=== PATIENT | female | born 1995 | race Caucasian/White ===

== ENCOUNTER 2016-06-10 18:04 | Emergency (ER) | payer MEDICAID, OTHER ==
[2016-06-10] MEDS ORDERED: NS 500 ML IV ONE (18:27)
--- NOTE | 2016-06-10 18:28 | EDPHY ---
H & P Stated Complaint: Sore throat, flu like symptoms Time Seen by Provider: 06/10/16 18:28 - Personal History LMP (Females 10-55): Over 28 Days Ago Current Tetanus/Diphtheria Vaccine: Yes Current Tetanus Diphtheria and Acellular Pertussis (TDAP): Yes - Medical/Surgical History Hx Asthma: Yes Hx Chronic Respiratory Disease: No Hx Diabetes: No Hx Cardiac Disease: No Hx Renal Disease: No Hx Cirrhosis: No Hx Alcoholism: No Hx HIV/AIDS: No Hx Splenectomy or Spleen Trauma: No Other PMH: asthma, herpes simplex 1 - Social History Smoking Status: Never smoked Constitutional: Initial Vital Signs Temperature (C) 38.8 C H 06/10/16 18:09 Heart Rate 118 H 06/10/16 18:09 Respiratory Rate 12 06/10/16 18:09 Blood Pressure 102/74 06/10/16 18:09 O2 Sat (%) 100 06/10/16 18:09 O2 Delivery Mode Room Air Allergies/Adverse Reactions: penicillin G Allergy (Verified 02/02/16 21:53) peanuts Allergy (Uncoded 02/02/16 21:53) Home Medications: Medication Instructions Recorded LaMICtal 09/11/15 Medical Decision Making ED Course/Re-evaluation: CHIEF COMPLAINT: "really sore throat" HISTORY OF PRESENT ILLNESS: The patient is a 20 y/o female complaining of a sore throat for the last 6 days. She complains of associated swelling and painful swallowing. She went to urgent care yesterday and they prescribed her Keflex, but she feels unimproved so far. No vomiting, fever, abdominal pain, or diarrhea. She denies pertinent medical history. REVIEW OF SYSTEMS: A 10 point review of systems was performed and is negative with the exception of the elements mentioned in the history of present illness. PHYSICAL EXAM: HR, BP, O2 Sat, RR. Temp noted at 38.8C General Appearance: Alert, well hydrated, appropriate, and non-toxic appearing. Head: Atraumatic without scalp tenderness or obvious injury Eyes: Pupils equal, round, reactive to light and accommodation, EOMI, no trauma , no injection. Ears: Clear bilaterally, no perforation, normal landmarks Nose: Atraumatic, no rhinorrhea, clear. Throat: There is significant erythema with mild swelling and exudate on left tonsil, uvula is excoriated, mucus membranes moist. Neck: Supple, nontender, cervical and mandibular lymphadenopathy. Respiratory: No retractions, no distress, no wheezes, and no accessory muscle use. Lungs are clear to auscultation bilaterally. Cardiovascular: Tachycardic regular rate and rhythm, no murmurs, rubs, or gallops. Good capillary refill all extremities. Gastrointestinal: Abdomen is soft, nontender, non-distended, no masses, no rebound, no guarding, no peritoneal signs. Musculoskeletal: Normal active ROM of all extremities, atraumatic. Neurological: Alert, appropriate, and interactive. The patient has normal DTRs and non-focal cranial nerves, motor, sensory, and cerebellar exam. Skin: No rashes, good turgor, no nodules on palpation. Past medical history: Previous ED visits for sore throat Past surgical history: denies Family history: noncontributory Social history: [employer] student Prior medical records reviewed including ED visit 02/04/16 for sore throat. DIFFERENTIAL DIAGNOSIS: The differential diagnosis for the patient's sore throat included but was not limited to bacterial pharyngitis, viral pharyngitis , pneumonia, urinary tract infection, viral syndrome, meningitis, and sepsis. MEDICAL DECISION MAKING: This is a healthy 20 y/o female presenting with a 6-day history of significant pharyngeal erythema and pain. She is initially febrile and tachycardic. Her symptoms are consistent with bacterial pharyngitis and she was placed on Keflex less than 24 hours ago. I agree with this choice of antibiotics. 1gm IV Ceftriaxone, 30mg IV Toradol, 10mg IV Decadron, and 2L IV NS administered. I recommended continuing her course of Keflex at home and using Tylenol and ibuprofen as needed for fever and pain. She is comfortable with this plan. I've referred her to ENT if needed for follow up. - Data Points Medications Given: Discontinued Medications Sodium Chloride (Ns) 500 mls @ 0 mls/hr IV EDNOW ONE PRN Reason: Wide Open Stop: 06/10/16 18:28 Last Admin: 06/10/16 18:38 Dose: 1,000 mls Departure - Departure Disposition: Home, Routine, Self-Care Clinical Impression: Acute bacterial pharyngitis Condition: Good Instructions: Cephalexin (By mouth), Pharyngitis (ED), Strep Throat (ED) Additional Instructions: 1. Continue taking Keflex as prescribed. Be sure to complete the entire prescription. 2. Use Tylenol and ibuprofen as directed on the packing if needed for pain or fever. 3. Follow up with your primary care provider for symptoms not improved over the next 3-4 days. 4. If you are having recurrent throat infections, I recommend following up with Dr. Sabillon, ENT, for further evaluation. Referrals: [facility] [Other] - As per Instructions Constance Sabillon MD [Medical Doctor] - As per Instructions Report Scribed for: Fabian Alston Report Scribed by: Susanne Herring Date of Report: 06/10/16 Time of Report: 19:04
[2016-06-10] MEDS ORDERED: DEXAMETHASONE 10 MG/ML VIAL IVP ONE (19:09)
[2016-06-10] MEDS ORDERED: KETOROLAC 30 MG/1 ML SDV IVP ONE (19:09)
[2016-06-10] MEDS ORDERED: NS 1,000 ML IV ONE (20:06)
[2016-06-10 20:10] VITALS: BP 101/57; PULSE 110; RESP 16; TEMP 102.6; O2SAT 97
== END 2016-06-10 20:30 | disposition home or self-care (01) ==
DX: J02.8 Acute pharyngitis due to other specified organisms (principal); B96.89 Other specified bacterial agents as the cause of diseases classified elsewhere; J45.909 Unspecified asthma, uncomplicated
CPT/HCPCS: 96365; J0696; J1885

== ENCOUNTER 2016-06-12 16:37 | Inpatient (IN) | payer OTHER ==
--- NOTE | 2016-06-12 16:44 | EDPHY ---
H & P Stated Complaint: SOB, tingling to extremities, unable to swallow Time Seen by Provider: 06/12/16 16:43 - Personal History Current Tetanus/Diphtheria Vaccine: Unsure Current Tetanus Diphtheria and Acellular Pertussis (TDAP): Unsure - Medical/Surgical History Hx Asthma: Yes Hx Chronic Respiratory Disease: No Hx Diabetes: No Hx Cardiac Disease: No Hx Renal Disease: No Hx Cirrhosis: No Hx Alcoholism: No Hx HIV/AIDS: No Hx Splenectomy or Spleen Trauma: No Other PMH: asthma, herpes simplex 1 - Social History Smoking Status: Never smoked Constitutional: Initial Vital Signs Temperature (C) 38.4 C H 06/12/16 16:40 Heart Rate 140 H 06/12/16 16:40 Respiratory Rate 18 06/12/16 16:40 Blood Pressure 94/72 L 06/12/16 16:40 O2 Sat (%) 98 06/12/16 16:40 O2 Delivery Mode Room Air Allergies/Adverse Reactions: penicillin G Allergy (Verified 02/02/16 21:53) peanuts Allergy (Uncoded 02/02/16 21:53) Home Medications: Medication Instructions Recorded LaMICtal 09/11/15 Keflex 06/12/16 Medical Decision Making ED Course/Re-evaluation: CHIEF COMPLAINT: Sore throat, fever, unable to swallow HISTORY OF PRESENT ILLNESS: The patient is a 20 y/o female complaining of worsening sore throat and fever over the last week. I evaluated her 2 days ago for the same complaint. At that visit she received IV Decadron, IV Keflex, and IV fluids and was discharged with instructions to continue her Keflex at home. She has worsened in the last 48 hours and now is unable to swallow due to pain. She feels weak and complains of associated myalgias. She denies vomiting, diarrhea, abdominal pain, dyspnea, or cough. REVIEW OF SYSTEMS: A 10 point review of systems was performed and is negative with the exception of the elements mentioned in the history of present illness. PHYSICAL EXAM: HR 140, BP, O2 Sat, RR. Temp noted at 38.4C General Appearance: Alert, dehydrated, appropriate, and ill-appearing. Head: Atraumatic without scalp tenderness or obvious injury Eyes: Pupils equal, round, reactive to light and accommodation, EOMI, no trauma , no injection. Ears: Clear bilaterally, no perforation, normal landmarks Nose: Atraumatic, no rhinorrhea, clear. Throat: Significant pharyngeal erythema and swelling, exudate along both tonsils. No obvious abscess. No lesions, mucus membranes dry. Neck: Supple, significant submandibular and cervical lymphadenopathy. Respiratory: No retractions, no distress, no wheezes, and no accessory muscle use. Lungs are clear to auscultation bilaterally. Cardiovascular: Tachycardic regular rate and rhythm, no murmurs, rubs, or gallops. Good capillary refill all extremities. Gastrointestinal: Abdomen is soft, nontender, non-distended, no masses, no rebound, no guarding, no peritoneal signs. Musculoskeletal: Normal active ROM of all extremities, atraumatic. Neurological: Alert, appropriate, and interactive. Moves all 4 extremities equally. Skin: No rashes, good turgor, no nodules on palpation. Past medical history: Previous ED visits for sore throat Past surgical history: denies Family history: noncontributory Social history: [employer] Student Prior medical records reviewed including ED visit 06/10/16 for similar symptoms. DIFFERENTIAL DIAGNOSIS: The differential diagnosis for the patient's fever included but was not limited to tonsillitis, pharyngitis, mononucleosis, pneumonia, urinary tract infection, viral syndrome, meningitis, and sepsis. MEDICAL DECISION MAKIN: Sepsis risk identified. Patient is tachycardic around 140 and febrile with obvious throat infection. This is her third visit in the last 3 days for these symptoms with no improvement. She has significant pharyngeal erythema and swelling with bilateral tonsillar exudate. She IV established. Sepsis labs and Naseem-Mcleod antibodies drawn. I administered 900mg IV clindamycin, 10mg IV Decadron, 1mg IV Dilaudid, and IV fluids for symptoms. Plan for admission. 1656: Spoke with hospitalist service. Dr. Vitale accepts admission to [facility]. 1705: Spoke with patient's mother via phone and updated her on patient's condition with patient's consent. I answered all her questions. Departure - Departure Disposition: [facility] Inpatient Acute Clinical Impression: Tonsillitis, Dehydration, Strep pharyngitis Swallowing difficulty Qualifiers: Dysphagia type: other dysphagia Qualified Code(s): R13.19 - Other dysphagia Condition: Good Report Scribed for: Fabian Alston Report Scribed by: Susanne Herring Date of Report: 06/12/16 Time of Report: 16:44
[2016-06-12] MEDS ORDERED: CLINDAMYCIN 900 MG/DEXTROSE 50 ML IV ONE (16:48)
[2016-06-12] MEDS ORDERED: DEXAMETHASONE 10 MG/ML VIAL IVP ONE (16:49)
[2016-06-12] MEDS ORDERED: NS 1,000 ML IV ONE ×2 (16:50)
[2016-06-12] MEDS ORDERED: HYDROmorphONE/DILAUDID 1 MG/ML SYR IVP ONE (16:50)
[2016-06-12 17:13] LABS: % IMMATURE GRANULYOCYTES 0.5 % (0.0-1.1); ABSOLUTE IMMATURE GRANULOCYTES 0.03 10^3/uL (0.00-0.10); ADD DIFF? NO; ADD MORPH? NO; ADD SCAN? NO; ATYPICAL LYMPHOCYTE FLAG 50 (0-99); FRAGMENT RBC FLAG 0 (0-99); HEMATOCRIT 47.8 % (38.0-47.0); HEMOGLOBIN 16.2 g/dL (12.6-16.3); LEFT SHIFT FLG 0 (0-99); LIPEMIA HEMOLYSIS FLAG 90 (0-99); MEAN CELL HEMOGLOBIN 28.3 pg (27.9-34.1); MEAN CELL HEMOGLOBIN CONCENTR. 33.9 g/dL (32.4-36.7); MEAN CELL VOLUME 83.4 fL (81.5-99.8); MEAN PLATELET VOLUME 10.5 fL (8.7-11.7); PLATELET CLUMPS FLAG 80 (0-99); PLATELET COUNT 173 10^3/uL (150-400); RED BLOOD CELL COUNT 5.73 10^6/uL (4.18-5.33); RED CELL DISTRIBUTION WIDTH 12.6 % (11.5-15.2)
[2016-06-12 17:28] LABS: INR 0.98 (0.83-1.16); PROTIME(PATIENT) 12.9 SEC (12.0-15.0)
[2016-06-12 17:29] LABS: APTT 32.6 SEC (23.0-38.0)
[2016-06-12 17:35] LABS: ANION GAP 19 mEq/L (8-16); BILIRUBIN,TOTAL 0.8 mg/dL (0.1-1.4); CALCIUM 9.4 mg/dL (8.5-10.4); CARBON DIOXIDE 22 mEq/l (22-31); CHLORIDE 98 mEq/L (97-110); CREATININE 0.7 mg/dL (0.6-1.0); GLOMERULAR FILTRATION RATE > 60; GLUCOSE 106 mg/dL (70-100); POTASSIUM 3.8 mEq/L (3.5-5.2); SODIUM 139 mEq/L (134-144)
[2016-06-12] MEDS ORDERED: ONDANSETRON DISINTEGRATING 4 MG TAB PO PRN (17:49)
[2016-06-12] MEDS ORDERED: ACETAMINOPHEN 325 MG TAB PO PRN (17:49)
[2016-06-12] MEDS ORDERED: PROMETHAZINE HCL 25 MG TAB PO PRN (17:49)
[2016-06-12] MEDS ORDERED: ONDANSETRON 4 MG/2 ML VIAL IVP PRN (17:49)
[2016-06-12] MEDS ORDERED: ALBUTEROL 60 PUFFS/8 GM MDI IH PRN (17:51)
[2016-06-12] MEDS ORDERED: CEPACOL LOZENGE PO PRN (17:53)
[2016-06-12] MEDS: NS 1,000 ML IV SCH ×2 (18:42→20:36)
[2016-06-12] MEDS: oxyCODONE IR 5 MG TAB PO PRN ×2 (18:42→21:47)
[2016-06-12 18:45] LABS: ALBUMIN 4.5 g/dL (3.5-5.0); BILIRUBIN,TOTAL 0.9 mg/dL (0.1-1.4); BILIRUBIN-CONJUGATED 0.7 mg/dL (0.0-0.5); BILIRUBIN-UNCONJUGATED 0.2 mg/dL (0.0-1.1); TOTAL PROTEIN 7.8 g/dL (6.3-8.2)
[2016-06-12] MEDS: DEXAMETHASONE 4 MG/ML VIAL IVP SCH (18:59)
--- NOTE | 2016-06-12 19:43 | GHP ---
[f rep st] HISTORY AND PHYSICAL DATE OF ADMISSION: 06/12/2016 CHIEF COMPLAINT: Throat pain, fevers, and generalized body aches. HISTORY OF PRESENT ILLNESS: This is a 20-year-old female, who has a past medical history of asthma and presents with complaints of a sore throat for 7 days. She has been seen recently, both in the E R and urgent care, where she was prescribed Keflex and given also a gram of ceftriaxone and IV stero ids, and despite this, she has not significantly improved. She has also had subjective fevers and c hills. She does not have any difficulty breathing, but does have a lot of pain with swallowing and has not been able to eat or drink very much. She states that, at her urgent care visit, she was temi d that she has both strep throat and influenza. She does have a co-worker, who has similar symptoms but not as severe. She has had issues with pharyngitis in the past, necessitating ER visit, but it was not as severe as this. PAST MEDICAL HISTORY: Includes ; HSV, type 1. 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 SOCIAL HISTORY: The patient is a [employer] student. She is a nonsmoker. Drinks socially. Denies drug us e. Her family is from [place]. FAMILY HISTORY: Reviewed and noncontributory. REVIEW OF SYSTEMS: 10-point review of systems obtained and negative, except as per HPI. MEDICATIONS: Include: 1. Lamictal. 2. Keflex. 3. Albuterol. ALLERGIES: Include penicillin. CLINICAL EXAM: VITAL SIGNS: BP 104/70, heart rate 80, respiratory rate 18. O2 sat is 98% on 2 L. She was also 98% on room air. Temperature is 37.9. She had a T-max today of 38.4. GENERAL APPEAR ANCE: The patient is a well-developed, [id number] female. She is in mild distress. EYES: Anicteric. HENT: Posterior pharynx is erythematous with enlarged tonsils bilaterally that a re not obstructing her airway. There is exudate noted along both tonsils without anything to sugges t abscess. NECK: Supple with bilateral submandibular and cervical lymphadenopathy noted. She has no stridor. CARDIOVASCULAR: Regular rate and rhythm, no MRG. PULMONARY: CTA bilaterally. Normal work of breathing. ABDOMEN: Soft, nontender, nondistended. EXTREMITIES: No clubbing, cyanosis, or edema. SKIN: Warm, dry, well perfused. NEURO/PSYCH: Oriented and appropriate, pleasant. CLINICAL DATA: Labs reviewed. Significant for a white blood cell count 5.9, hemoglobin is 16.2, he matocrit of 47.8. Coags are normal. Lactic acid is 1.6. Chemistry is remarkable for a glucose of 106. ASSESSMENT AND PLAN: This is a 20-year-old female, past medical history of presenting wi th presumed group A Streptococcus pharyngitis. 1. Pharyngitis. Again, per patient's report, this was group A strep at an outside facility. I jass l repeat rapid strep test and obtain throat cultures. She does have a penicillin allergy and was pr eviously treated with Keflex without improvement and has been started on clindamycin in the emergenc y department, which will be continued. Will also continue steroids. She does not have any evidence of airway obstruction or a suggestion of abscess by exam. Should she not improve clinically overni ght, I would obtain, at that point, imaging of the neck to confirm that there is no occult deeper in fection. Mononucleosis is another consideration, and EBV serologies are currently pending. 2. Influenza. Per patient's report, she was recently diagnosed with influenza several days ago. S he does have diffuse body aches, consistent with this diagnosis. Will treat symptomatically. At th is point, she is out of the window for Tamiflu. 3. Chronic asthma without any history of having severe bouts in the past. She does not have any ev idence of asthma exacerbation at this time. I will continue her p.r.n. inhaler. 4. Disposition: Observation status. I suspect she will improve on current treatment and likely be ready for discharge in the coming 24 hours; however, given a protracted course preceding admission, it is certainly possible that she will require an inpatient stay. This remains to be seen. Patient is new to my care. Old records reviewed and summarized as per HPI and past medical history. Care plan reviewed with Dr. Alston in the Emergency Department, including plans for clindamycin. /[id number]/MODL
[2016-06-12] MEDS: KETOROLAC 15 MG/1 ML SDV IVP SCH (20:36)
[2016-06-12] MEDS: lamoTRIgine 25 MG TAB PO SCH (21:47)
[2016-06-12] MEDS: CLINDAMYCIN 900 MG/DEXTROSE 50 ML IV SCH (21:48)
[2016-06-13] MEDS: DEXAMETHASONE 4 MG/ML VIAL IVP SCH ×4 (00:27→18:38)
[2016-06-13] MEDS: KETOROLAC 15 MG/1 ML SDV IVP SCH ×4 (00:28→18:39)
[2016-06-13] MEDS: CLINDAMYCIN 900 MG/DEXTROSE 50 ML IV SCH ×2 (04:58→15:07)
[2016-06-13] MEDS: oxyCODONE IR 5 MG TAB PO PRN ×2 (05:00→07:52)
[2016-06-13] MEDS: NS 1,000 ML IV SCH (05:00)
[2016-06-13 06:19] LABS: ANION GAP 12 mEq/L (8-16); CALCIUM 8.3 mg/dL (8.5-10.4); CARBON DIOXIDE 22 mEq/l (22-31); CHLORIDE 105 mEq/L (97-110); CREATININE 0.4 mg/dL (0.6-1.0); GLOMERULAR FILTRATION RATE > 60; GLUCOSE 105 mg/dL (70-100); POTASSIUM 5.1 mEq/L (3.5-5.2); SODIUM 139 mEq/L (134-144)
[2016-06-13] MEDS ORDERED: LIDOCAINE 2% VISCOUS 15 ML UDCUP PO PRN ×2 (08:23→11:06)
[2016-06-13 09:07] LABS: % IMMATURE GRANULYOCYTES 0.2 % (0.0-1.1); ABSOLUTE IMMATURE GRANULOCYTES 0.01 10^3/uL (0.00-0.10); ADD DIFF? NO; ADD MORPH? NO; ADD SCAN? NO; ATYPICAL LYMPHOCYTE FLAG 90 (0-99); FRAGMENT RBC FLAG 0 (0-99); HEMOGLOBIN 15.6 g/dL (12.6-16.3); LEFT SHIFT FLG 10 (0-99); LIPEMIA HEMOLYSIS FLAG 80 (0-99); MEAN CELL HEMOGLOBIN 28.8 pg (27.9-34.1); MEAN CELL HEMOGLOBIN CONCENTR. 33.2 g/dL (32.4-36.7); MEAN CELL VOLUME 86.7 fL (81.5-99.8); MEAN PLATELET VOLUME 10.9 fL (8.7-11.7); PLATELET CLUMPS FLAG 0 (0-99); PLATELET COUNT 154 10^3/uL (150-400); RED BLOOD CELL COUNT 5.42 10^6/uL (4.18-5.33); RED CELL DISTRIBUTION WIDTH 12.8 % (11.5-15.2)
[2016-06-13] MEDS ORDERED: HYDROmorphONE/DILAUDID 1 MG/ML SYR IVP PRN (11:05)
[2016-06-13] MEDS: HYDROmorphONE/DILAUDID 2 MG TAB PO PRN ×3 (12:44→22:38)
[2016-06-13] MEDS ORDERED: IOPAMIDOL (ISOVUE-300) 100 ML BTL IV ONE (13:31)
--- NOTE | 2016-06-13 15:55 | HOSPPROG ---
Hospitalist Progress Note Assessment/Plan: Assessment: 20-year-old female presents with acute, severe pharyngitis and systemic inflammatory response syndrome Plan: 1. Pharyngitis. Acute, new problem this provider, further workup indicated. Severe, suspect bacterial in origin given her lymphadenopathy, tonsillar exudate , fever, meeting 3 of 4 centor criteria - reviewed outside records including emergency department report by Dr. Alston on , at that time influenza test was not performed but patient is now outside of window in which therapy would be beneficial - failed outpatient oral antibiotics (Notably Keflex), initiated on IV clindamycin, will continue day 2 of 7 - added viscous lidocaine with good effect - adjust pain medications to oral and IV Dilaudid plus as needed Toradol - continue IV fluids given the patient is unable to tolerate oral intake secondary to severely enlarged tonsils and throat pain - get CT of the neck to rule out peritonsillar abscess - throat and blood culture sent 2. Systemic inflammatory response syndrome. Acute, fever and tachycardia on presentation, responded to IV fluids and empiric IV antibiotics -continue to monitor vital signs and CBC Diet. Clear liquid as tolerates Prophylaxis. High risk patient, Lovenox 40 Code. Full Disposition. Anticipated discharge uncertain this time, upgraded to inpatient admission status for reasonable medical necessity including severe pharyngitis requiring ongoing IV fluids and pain medications q.2 hours given her inability to safely tolerate oral intake Subjective: patient reports ongoing throat pain, reports degree of relief from a viscous lidocaine Objective: Vital Signs Temp Pulse Resp BP Pulse Ox 36.6 C 67 16 95/56 L 97 06/13/16 11:48 06/13/16 11:48 06/13/16 11:48 06/13/16 11:48 06/13/16 11:48 Microbiology 06/12/16 19:00 Gram Stain - Final Throat - Swab Laboratory Results 06/13/16 05:22 06/13/16 05:22 06/12/16 06/13/16 06/14/16 05:59 05:59 05:59 Intake Total 1999 Balance 1999 PT 12.9 SEC (12.0-15.0) 06/12/16 17:00 INR 0.98 (0.83-1.16) 06/12/16 17:00 - Physical Exam Constitutional: no apparent distress ( mild distress), appears nourished, uncomfortable, No not in pain Ears, Nose, Mouth, Throat: other ( erythematous posterior pharynx, enlarged tonsils with mild exudate on the right 1, moist mucous membranes, no glossitis) Cardiovascular: No systolic murmur, No irregularly irregular, No tachycardia, No edema Respiratory: no respiratory distress, no rales or rhonchi, clear to auscultation , other ( no upper airway stridor) Gastrointestinal: normoactive bowel sounds, soft, non-tender abdomen, no palpable masses Neurologic: AAOx3, No facial droop Psychiatric: interacting appropriately, not anxious, not encephalopathic, thought process linear Lymph, Heme, Immunologic: other ( tender palpable bilateral anterior cervical and submandibular lymph nodes without any posterior cervical lymphadenopathy) ICD10 Worksheet Patient Problems: Problems Problem Status Onset Dehydration Acute Strep pharyngitis Acute Swallowing difficulty Acute Tonsillitis Acute Acute pharyngitis Acute
[2016-06-13] MEDS: CLINDAMYCIN 600 MG/DEXTROSE 50 ML IV SCH (21:32)
[2016-06-13] MEDS: lamoTRIgine 25 MG TAB PO SCH (21:33)
[2016-06-14] MEDS: KETOROLAC 15 MG/1 ML SDV IVP SCH ×3 (00:02→13:19)
[2016-06-14] MEDS: DEXAMETHASONE 4 MG/ML VIAL IVP SCH ×3 (00:02→13:19)
[2016-06-14 05:29] LABS: % IMMATURE GRANULYOCYTES 0.5 % (0.0-1.1); ABSOLUTE IMMATURE GRANULOCYTES 0.03 10^3/uL (0.00-0.10); ADD DIFF? NO; ADD MORPH? NO; ADD SCAN? YES; FRAGMENT RBC FLAG 0 (0-99); HEMATOCRIT 38.7 % (38.0-47.0); HEMOGLOBIN 13.2 g/dL (12.6-16.3); LEFT SHIFT FLG 10 (0-99); LIPEMIA HEMOLYSIS FLAG 90 (0-99); MEAN CELL HEMOGLOBIN 28.7 pg (27.9-34.1); MEAN CELL HEMOGLOBIN CONCENTR. 34.1 g/dL (32.4-36.7); MEAN CELL VOLUME 84.1 fL (81.5-99.8); MEAN PLATELET VOLUME 10.6 fL (8.7-11.7); PLATELET CLUMPS FLAG 0 (0-99); PLATELET COUNT 169 10^3/uL (150-400); RED CELL DISTRIBUTION WIDTH 12.6 % (11.5-15.2)
[2016-06-14] MEDS: CLINDAMYCIN 600 MG/DEXTROSE 50 ML IV SCH ×2 (05:39→13:19)
[2016-06-14] MEDS: HYDROmorphONE/DILAUDID 2 MG TAB PO PRN ×3 (05:40→13:19)
[2016-06-14 05:41] LABS: ALANINE AMINOTRANSFERASE 35 IU/L (9-52); ALBUMIN 2.9 g/dL (3.5-5.0); ALKALINE PHOSPHATASE 41 IU/L (38-126); ANION GAP 8 mEq/L (8-16); ASPARTATE AMINOTRANSFERASE 30 IU/L (14-46); BILIRUBIN,TOTAL 0.3 mg/dL (0.1-1.4); CALCIUM 8.4 mg/dL (8.5-10.4); CARBON DIOXIDE 24 mEq/l (22-31); CHLORIDE 106 mEq/L (97-110); CREATININE 0.4 mg/dL (0.6-1.0); GLOMERULAR FILTRATION RATE > 60; GLUCOSE 109 mg/dL (70-100); POTASSIUM 4.3 mEq/L (3.5-5.2); SODIUM 138 mEq/L (134-144); TOTAL PROTEIN 5.4 g/dL (6.3-8.2)
[2016-06-14 05:49] LABS: ATYPICAL LYMPHOCYTE FLAG 100 (0-99)
[2016-06-14 06:52] LABS: SCAN NEGATIVE
[2016-06-14 07:16] VITALS: TEMP 97.8; O2SAT 96
[2016-06-14 09:18] VITALS: BP 90/54; PULSE 61; RESP 16
--- NOTE | 2016-06-14 11:49 | PDDCSUM ---
Discharge Summary Discharge Summary: This is a 20-year-old female presents with acute, severe pharyngitis and systemic inflammatory response syndrome. Please H&P for complete details. She was admitted and treated with IV clindamycin and IV steroids. She also received IVF. Feels much better, afebrile, tolerating PO. Wants to go home and discharge will be arranged. I have asked her and her mother for the patient to f/u with her PCP in 4-7 days. Studies: CT Neck: no abscess No leukocytosis on discharge Exudate culture negative EBV Pending Blood culture: no growth to date She has been transitioned to clindamycin 300mg PO TID x 8 more days and Prednisone 20mg daily x 5 days DDX: 1. Pharyngitis. Acute, likely bacterial 2. Systemic inflammatory response syndrome. Acute, fever and tachycardia on presentation, responded to IV fluids and empiric IV antibiotics -continue to monitor vital signs and CBC Diet. Regular Exam: GEN: NAD HEENT: PEERL, EOMI, OROPHARYNX WITH SOME EXUDATE AND MINIMAL SWELLING. NO PETECHIA. NO BLISTERING CV: RRR, NO M/R/G LUNG: CTA B ABD: S/NT/ND EXT: NO EDEMA MEDS: SEE MED REC. NEW MEDS PER ABOVE TOTAL CARE TIME ARRANGING DISCHARGE IS 35 MINUTES
[2016-06-14 13:56] LABS: ANTI EBNA Positive (Negative); ANTI VCA/IgG Positive (Negative); ANTI VCA/IgM Negative (Negative)
[2016-06-14] MEDS ORDERED: CLINDAMYCIN 150 MG CAP PO SCH (22:00)
[2016-06-15] MEDS ORDERED: predniSONE 20 MG TAB PO SCH (09:00)
== END 2016-06-14 15:30 | disposition home or self-care (01) | DRG 153 ==
LOC: F1N 17:35 → OBSVTOIN 06-13 15:55
PROVIDERS: ADMIT Internal Medicine; ATTEND Internal Medicine
DX: J02.8 Acute pharyngitis due to other specified organisms (principal); R65.10 Systemic inflammatory response syndrome (SIRS) of non-infectious origin without acute organ dysfunction; Z88.0 Allergy status to penicillin
CPT/HCPCS: 86664-90; 86665-90; 96365; G0378; J1100; J1170; J1885; Q9967

== ENCOUNTER 2016-06-22 21:15 | Emergency (ER) | payer OTHER ==
[2016-06-22 21:45] VITALS: BP 110/65; RESP 16; TEMP 98.1
[2016-06-22] MEDS ORDERED: predniSONE 20 MG TAB PO ONE (22:47)
--- NOTE | 2016-06-22 22:49 | EDPHY ---
General Narrative: CHIEF COMPLAINT: Neck rash, red spots on tongue HISTORY OF PRESENT ILLNESS: Patient had a recent severe case of strep pharyngitis that resulted in admission to the hospital and IV treatment. She was discharged after or several days of IV antibiotics, steroids and IV fluid resuscitation. She was feeling well until last night and into this morning. At the time she noted some rash in to the anterior portion of the neck. No rash of the back. She also had some red dots on her tongue. She does not have any pain in the pharynx. She has no headache. No fever. No chest pain or shortness of breath. No cough. No abdominal or urinary complaints. She did complete the medications she was discharged home with as instructed. She was feeling better until this new complaint. No other associated complaints or modifying factors. REVIEW OF SYSTEMS: Ten systems reviewed and are negative unless otherwise noted in the HPI PERTINENT MEDICAL HISTORY: Recent strep pharyngitis with hospitalization and treat with clindamycin EXAMINATION General Appearance: Alert, no distress Head: normocephalic, atraumatic Eyes: Pupils equal and round, no conjunctival pallor or injection ENT, Mouth: Mucous membranes moist. Uvula midline. There is no posterior erythema or edema. No abscess noted. No exudates. There are small areas of erythema about the tongue. There is no abnormality of the floor of the mouth. No lesions of the lips or buccal mucosa. Neck: Normal inspection, supple, non-tender Respiratory: Lungs are clear to auscultation. No wheezing, rhonchi or crackles. Cardiovascular: Regular rate and rhythm. No murmur. Pulses intact with symmetric radial 2+. Gastrointestinal: Abdomen is soft and nontender Back: non-tender, no bony abnormalities Neurological: A&O, nonfocal, normal gait Skin: Warm and dry. Mild rash to the anterior neck. There is no petechiae purpura. No scarlatina rash on the back. Extremities: Nontender, no pedal edema Psychiatric: Mood and affect normal DIFFERENTIAL DIAGNOSES: Including but not limited to viral exanthem, mononucleosis, acute dermatitis MDM: 10:45 p.m. Mild rash to the anterior portion of the neck. This is not a scarlatina or urticarial rash. She has no rash on the back. The throat is well-appearing. There are some very small red spots on the tongue that are blanchable. She has no murmur. She has No fever. Her vital signs are all within normal limits. No chest pain or shortness of breath. She is very well-appearing. Possibly contact dermatitis or viral exanthem, and less likely mononucleosis. I will attempt another round of prednisone for the next 5 days. I recommend follow up with primary care physician later this week or early next week. Strict return to the ER precautions for for fever, chest pain, shortness of breath or sore throat. She is comfortable with this plan and discharged home in stable condition after 1st dose of prednisone here in the emergency department. Addendum: After my evaluation of the patient and after she was discharged home, I was notified that the patient's mother was asking to speak with me regarding her care. I have declined at this time as I have not obtain permission from the patient. I would be happy to discuss with the mother if I obtain permission from the patient so that I do not violate her hip right. SUPERVISION: This patient was independently evaluated without direct examination by the attending physician. Case was discussed with attending physician. - History Smoking Status: Never smoked - Objective Vital Signs: Initial Vital Signs Temperature (C) 98.1 F 06/22/16 21:43 Heart Rate 83 06/22/16 21:43 Respiratory Rate 16 06/22/16 21:43 Blood Pressure 110/65 06/22/16 21:43 O2 Sat (%) 97 06/22/16 21:43 O2 Delivery Mode Room Air Allergies/Adverse Reactions: penicillin G Allergy (Verified 06/22/16 21:42) peanuts Allergy (Uncoded 06/22/16 21:42) Home Medications: Medication Instructions Recorded Albuterol [Proventil Inhaler HFA 1 - 2 puffs IH Q4H PRN 06/12/16 (*)] lamoTRIgine [LaMICtal] 100 mg PO HS 06/12/16 predniSONE [Deltasone] 60 mg PO DAILY #12 tablet 06/22/16 Medications Given: Discontinued Medications Prednisone (Prednisone) 60 mg PO EDNOW ONE Stop: 06/22/16 22:48 Last Admin: 06/22/16 22:53 Dose: 60 mg Departure - Departure Disposition: Home, Routine, Self-Care Clinical Impression: Rash Condition: Good Instructions: Acute Rash (ED) Additional Instructions: Prednisone as discussed. Follow up with primary care physician. Return to the ER for any chest pain or shortness of breath, fever, sore throat or worsening rash Referrals: [facility] [Other] - As per Instructions Prescriptions: predniSONE [Deltasone] 60 mg PO DAILY #12 tablet
[2016-06-22 22:56] VITALS: PULSE 82; O2SAT 95
== END 2016-06-22 22:56 | disposition home or self-care (01) ==
DX: R21 Rash and other nonspecific skin eruption (principal); Z91.010 Allergy to peanuts

== ENCOUNTER 2016-06-23 18:59 | Emergency (ER) | payer OTHER ==
[2016-06-23 19:07] VITALS: BP 96/60; PULSE 98; RESP 16; TEMP 98.4; O2SAT 98
--- NOTE | 2016-06-23 19:36 | EDPHY ---
H & P Time Seen by Provider: 06/23/16 19:11 HPI/ROS: This is a 20-year-old female presenting to the emergency department, concern for rash on her neck and her back. Patient has been seen here on 06/10/16 admitted for strep and IV antibiotics, seen on06/22/16 for re-evaluation patient stated that she did not have all her questions answered and was concerned of the rash. Patient states she finished all clindamycin antibiotics last dose was 4 days ago, also finished course of prednisone. Patient denies any fever, chills,and sore throat all of her symptoms have resolved other than the rash which started 2 days ago. Denies any other complaints REVIEW OF SYSTEMS: Constitutional: No fever chills, normal PO intake ENT: No sore throat and no ear pain Respiratory: No cough or shortness of breath Cardiac: No chest pain Gastrointestinal: No abdominal pain or nausea vomiting Musculoskeletal: No body aches Skin: Rash on neck and upper back Neurological: No headaches or dizziness Smoking Status: Never smoked Physical Exam: CONSTITUTIONAL: patient appeared well nourished, non-ill appearing and normally developed. No acute distress. Vital signs as documented. HEENT: Normocephalic atraumatic PERRLA. EOMI. TMs normal bilaterally. Small erythemic spot noted to posterior-oropharynx no exudate no tonsillar edema NECK: Supple, FROM without pain RESP: Non-labored resp effort, airway patent, CTAB CARDIAC: RRR w/o murmur, rinku. Normal S1/S2 GI: Abd soft NTTP, no mass NEURO: AAOx3 EXTREMITIES: FROM without pain or difficulty. Positive cms intact SKIN: Dry skin noted to chest, neck, and upper back LYMPH: No cervical lymphadenopathy NTTP PSYCH: Normal affect, calm, no distress Constitutional: Initial Vital Signs Temperature (C) 36.9 C 06/23/16 19:02 Heart Rate 98 06/23/16 19:02 Respiratory Rate 16 06/23/16 19:02 Blood Pressure 96/60 L 06/23/16 19:02 O2 Sat (%) 98 06/23/16 19:02 O2 Delivery Mode Room Air Allergies/Adverse Reactions: penicillin G Allergy (Verified 06/22/16 21:42) peanuts Allergy (Uncoded 06/22/16 21:42) Home Medications: Medication Instructions Recorded Albuterol [Proventil Inhaler HFA 1 - 2 puffs IH Q4H PRN 06/12/16 (*)] lamoTRIgine [LaMICtal] 100 mg PO HS 06/12/16 predniSONE [Deltasone] 60 mg PO DAILY #12 tablet 06/22/16 Medical Decision Making ED Course/Re-evaluation: Re-evaluation of rash, other symptoms have resolved. Discharge home---> stable , discussed discharge instructions with the patient Differential Diagnosis: Differential diagnosis considered but not limited to scarlatina rash, psoriasis viral exanthem Departure - Departure Disposition: Home, Routine, Self-Care Clinical Impression: Rash Condition: Good Additional Instructions: Discharge home--->, stable discussed discharge instructions 1. rest, increase fluid intake 2. Monitor for any changes in symptoms, such as: Changes in rash , throat swelling, sore throat shortness of breath or any chest pain if these should occur return to the emergency department 2. I have given you number for [facility] you can call them to set up a follow-up appointment with primary care. 3. Handwashing to prevent the spread of germs or viruses 4. Patient was reassured that symptoms are resolving. If any questions or concerns she can call emergency department. The patient verbalized understanding of discharge instructions Referrals: NONE *PRIMARY CARE P,. [Primary Care Provider] - As per Instructions [facility],. [Clinic] - As per Instructions
== END 2016-06-23 19:53 | disposition home or self-care (01) ==
DX: R21 Rash and other nonspecific skin eruption (principal); Z91.010 Allergy to peanuts

== ENCOUNTER 2016-09-30 15:44 | Emergency (ER) | payer MEDICAID, OTHER ==
[2016-09-30 15:49] VITALS: BP 105/61; PULSE 88; RESP 16; TEMP 98.1; O2SAT 99
[2016-09-30] MEDS ORDERED: IBUPROFEN 600 MG TAB PO ONE (16:27)
--- NOTE | 2016-09-30 16:27 | EDPHY ---
H & P Time Seen by Provider: 09/30/16 16:18 HPI/ROS: CHIEF COMPLAINT: Right hand and wrist pain HISTORY OF PRESENT ILLNESS: 21-year-old [id number]-seyb-[id number] female complaining of acute right hand and wrist pain. This morning she was boxing, heating pads, felt no immediate pain however several hours later noticed pain to the 2nd 3rd 4th metacarpal as well as wrist. Pain is reproducible with palpation. She denies paresthesia or sensory deficit. PHYSICAL EXAM (Prior to examination, patient consented to physical exam, hands were washed and my usual and customary physical exam procedures followed) 1) GENERAL: Well-developed, well-nourished, alert and oriented. Appears to be in no acute distress. 2) HEAD: Normocephalic 3) HEENT: Pupils equal, round, reactive to light bilaterally. 4) LUNGS: Breathing comfortably. 5) MUSCULOSKELETAL: Tender to palpation 2nd 3rd 4th metacarpal. Tender to palpation distal radius. No deformity. Soft compartments. Normal coloration. 6) SKIN: intact 7) VASCULAR: pulses and cap refill present are brisk 8) NEUROLOGIC: Radial, ulnar, median nerve function intact with no deficits appreciated on exam DIFFERENTIAL DIAGNOSIS: in no particular order including but not limited to fracture, sprain, compartment syndrome * Procedure: Splint A Velcro volar splint was applied by ER gastroenterology technician. After application of the splint I returned and re-examined the patient. The splint was adequately immobilizing the joint and distal to the splint the patient's circulation and sensation were intact. Patient shows no signs of compartment syndrome. Was given orthopedic precautions. Smoking Status: Never smoked Constitutional: Initial Vital Signs Temperature (C) 36.7 C 09/30/16 15:45 Heart Rate 88 09/30/16 15:45 Respiratory Rate 16 09/30/16 15:45 Blood Pressure 105/61 09/30/16 15:45 O2 Sat (%) 99 09/30/16 15:45 O2 Delivery Mode Room Air Allergies/Adverse Reactions: penicillin G Allergy (Verified 09/30/16 15:45) peanuts Allergy (Uncoded 06/22/16 21:42) Home Medications: Medication Instructions Recorded lamoTRIgine [LaMICtal] 100 mg PO HS 06/12/16 oxyCODONE/APAP 5/325 [Percocet 1 tab PO Q6 #10 tab 09/30/16 5/325] MDM/Departure - [facility] Imaging Results: Imaging Impressions Hand X-Ray 09/30/16 15:50 Impression: Nothing acute identified. 2. Right Hand, Three Views History: Pain post trauma. Findings: No fracture or dislocation is identified. Impression: Nothing acute identified. Wrist X-Ray 09/30/16 15:50 Impression: Nothing acute identified. 2. Right Hand, Three Views History: Pain post trauma. Findings: No fracture or dislocation is identified. Impression: Nothing acute identified. Images reviewed myself ED Course/Re-evaluation: Patient has been informed of the imaging findings showing no definitive fracture. Has been informed that sprain/strain not ruled out. Has been informed that stress fracture not ruled out. Doubt compartment syndrome. Recommended splinting and follow up with Orthopedics. Given on-call hand surgery follow-up information and usual and customary orthopedic precautions and instructions. She feels comfortable being discharged. - Depart Disposition: Home, Routine, Self-Care Clinical Impression: Right wrist pain, Right hand pain Condition: Good Instructions: Wrist Injury (ED), Hand Sprain (ED) Additional Instructions: Return to the ER immediately if you experience discoloration, have worsening pain, numbness, tingling, or any other symptoms that concern you. If you received x-rays in the emergency department today, be advised, that ligamentous , tendon, muscular, and other non-bony injury cannot be fully ruled out. Try to keep your affected extremity elevated above the level of your chest, and keep cold packs on the affected area, for the next 48 hours. Prescriptions: oxyCODONE/APAP 5/325 [Percocet 5/325] 1 tab PO Q6 #10 tab Referrals: Jocelyn Keller MD [Medical Doctor] - 2-3 days, call for appt.
== END 2016-09-30 16:40 | disposition home or self-care (01) ==
DX: S69.91XA Unspecified injury of right wrist, hand and finger(s), initial encounter (principal); Z91.010 Allergy to peanuts; X58.XXXA Exposure to other specified factors, initial encounter; Y99.8 Other external cause status; Y93.71 Activity, boxing

== ENCOUNTER 2016-12-29 10:22 | Emergency (ER) | payer MEDICAID, OTHER ==
[2016-12-29 10:37] VITALS: O2SAT 98
--- NOTE | 2016-12-29 11:25 | EDPHY ---
H & P Stated Complaint: swollen tonsills - Personal History LMP (Females 10-55): 22-28 Days Ago Current Tetanus/Diphtheria Vaccine: Yes - Medical/Surgical History Hx Asthma: Yes Hx Chronic Respiratory Disease: No Hx Diabetes: No Hx Cardiac Disease: No Hx Renal Disease: No Hx Cirrhosis: No Hx Alcoholism: No Hx HIV/AIDS: No Hx Splenectomy or Spleen Trauma: No Other PMH: asthma; herpes simplex 2; Cleft lip/palate repair, hx mono, mood disorder - Social History Smoking Status: Never smoked Time Seen by Provider: 12/29/16 11:04 HPI/ROS: CHIEF COMPLAINT: Sore throat x4 days HISTORY OF PRESENT ILLNESS: 21-year-old f immunocompetent female complaining of 4 days of sore throat. She has prior history of hospitalization for pharyngitis and severe inflammatory response syndrome in May 2016. She currently denies: Fever, chills, flu-like symptoms, change in voice, nuchal rigidity, adenopathy REVIEW OF SYSTEMS: A ten point review of systems was performed and is negative with the exception of the items mentioned in the HPI PAST MEDICAL & SURGICAL HISTORY: History of severe pharyngitis with severe inflammatory response syndrome hospitalization in May 2016 SOCIAL HISTORY: student, nonsmoker PHYSICAL EXAM (Prior to examination, patient consented to physical exam, hands were washed and my usual and customary physical exam procedures followed) 1) GENERAL: Well-developed, well-nourished, alert and oriented. Appears to be in no acute distress. 2) HEAD: Normocephalic, atraumatic 3) HEENT: Pupils equal, round, reactive to light bilaterally. Sclera anicteric. Bilateral tonsils are enlarged, erythematous, with white exudate, symmetrical, uvula midline , no trismus no drooling no hot potato voice. Or mouth soft. Ears bilaterally with normal tympanic membranes. 4) NECK: Full range of motion, no meningeal signs. Positive submandibular adenopathy 5) LUNGS: Clear auscultation bilaterally, no wheezes, no rhonchi, no retractions. 6) HEART: Regular rate and rhythm, no murmur, no heave, no gallop. 7) ABDOMEN: No guarding, no rebound, no focal tenderness, negative McBurney's, negative Hernandez's, negative Rovsing's, negative peritoneal sign, 8) MUSCULOSKELETAL: Moving all extremities, no focal areas of tenderness, no obvious trauma. No peripheral edema or discoloration. 9) BACK: No CVA tenderness, no midline vertebral tenderness, no fluctuance, no step-off, no obvious trauma, no visual or palpable abnormality. 10) SKIN: No rash, no petechiae. 11) Psychiatric: Patient is oriented X 3, there is no agitation. DIFFERENTIAL DIAGNOSIS: in no particular order including but not limited to strep pharyngitis, viral pharyngitis, peritonsillar abscess, mononucleosis (Harris,Lalita Kelle) Constitutional: Initial Vital Signs Temperature (C) 36.8 C 12/29/16 10:35 Heart Rate 70 12/29/16 10:35 Respiratory Rate 17 12/29/16 10:35 Blood Pressure 100/73 12/29/16 10:35 O2 Sat (%) 98 12/29/16 10:35 O2 Delivery Mode Room Air Allergies/Adverse Reactions: penicillin G Allergy (Verified 09/30/16 15:45) peanuts Allergy (Uncoded 06/22/16 21:42) Home Medications: Medication Instructions Recorded lamoTRIgine [LaMICtal] 100 mg PO HS 06/12/16 Clindamycin HCl [Clindamycin] 300 mg PO TID 7 Days cap 12/29/16 Ibuprofen [Motrin (*)] 800 mg PO Q6 #15 tab 12/29/16 methylPREDNISolone [Medrol Dose 4 mg PO DAILY #1 ea 12/29/16 Corky] Medical Decision Making ED Course/Re-evaluation: 12:20 p.m.: Re-evaluation, discussed her negative strep and negative mono. High clinical suspicion for strep pharyngitis and discussed this with the patient. She prefers to have empiric treatment for likely strep pharyngitis. This has been initiated with oral clindamycin as she has a penicillin allergy. She also be started on Medrol Dosepak. She is given the name of on-call year nose and throat Dr. Juan Pablo Cooper to follow up with the next 1-3 days. Doubt peritonsillar abscess. Doubt retropharyngeal abscess or phlegmon. Usual customary pharyngitis precautions instructions provided. She feels comfortable being discharged home.Care of patient under supervision of secondary supervising physician Dr Miranda. (Lalita Iglesias) I did not see this patient while she was in the emergency department. However her care was discussed with the PA while the patient was in the department. I agree with treatment plan and management (Juan Pablo Miranda) - Data Points Laboratory Results: 12/29/16 12/29/16 12/29/16 Unknown 11:30 11:30 Monoscreen NEGATIVE (NEGATIVE) Group A Strep Screen NEGATIVE (NEGATIVE) Group A Strep DNA Pending Departure - Departure Disposition: Home, Routine, Self-Care Clinical Impression: Strep pharyngitis Condition: Good Instructions: Strep Throat in Children (ED) Additional Instructions: Return to the ER immediately if you cannot swallow, have drooling, fevers, neck stiffness, cannot open your jaw, or any other symptoms that concern you. Referrals: Juan Pablo Cooper MD [Medical Doctor] - 1-2 days without fail Prescriptions: Clindamycin HCl [Clindamycin] 300 mg PO TID 7 Days cap Ibuprofen [Motrin (*)] 800 mg PO Q6 #15 tab methylPREDNISolone [Medrol Dose Corky] 4 mg PO DAILY #1 ea
[2016-12-29 12:38] VITALS: BP 98/68; PULSE 95; RESP 18; TEMP 98.6
== END 2016-12-29 12:36 | disposition home or self-care (01) ==
DX: J02.0 Streptococcal pharyngitis (principal); J45.909 Unspecified asthma, uncomplicated

== ENCOUNTER 2017-01-27 17:05 | Emergency (ER) | payer MEDICAID, OTHER ==
[2017-01-27 17:16] VITALS: BP 120/54; PULSE 64; RESP 18; TEMP 98.2; O2SAT 99
--- NOTE | 2017-01-27 17:30 | EDPHY ---
H & P Stated Complaint: HX GENITAL HERPES/NEEDS REFILL OF VALTREX Time Seen by Provider: 01/27/17 17:29 HPI/ROS: HPI: This is a 21-year-old female who presents with Chief Complaint: HX GENITAL HERPES/NEEDS REFILL OF VALTREX Location: Quality: Herpes outbreak Duration: 2 days Signs and Symptoms:+ painful lesions, + tingling, no fever, no fatigue, no myalgias, no headaches Timing: Sudden onset Severity: Moderate Context: Patient reports that she was diagnosed genital herpes Thanks of 2013 she normally has to breakout per year. She presents today with gradual onset of tingling in her vulva that she initially thought were ingrown hairs but then presented as small painful blisters. She is originally from [place] and is here attending the local school. She only had 1 pill of 1 g Valtrex left that she took yesterday and noted significant improvement in the lesions. She is here in the emergency room today requesting refill prescription of Valtrex for which her prescription does pay for. She is currently sexually active; last intercourse was approximately 3 days ago; partner does wear a condom during sexual intercourse. She denies any vaginal discharge/vaginal bleeding/dyspareunia. LMP was 1 week ago. Modifying Factors: Valtrex Comment: ROS: see HPI Constitutional: No fever, no chills, no weight loss Eyes: No blurred vision Respiratory: No shortness of breath, no cough Cardiovascular: No chest pain Gastrointestinal: No nausea, no vomiting, no diarrhea Genitourinary: No dysuria Extremities: No myalgias Neurologic: No weakness, no numbness Skin: No rashes Hematologic: No bruising, no bleeding MEDICAL/SURGICAL/SOCIAL HISTORY: Medical history: Genital herpes. Surgical history: Cleft palate repair Social history: Student. Originally from [place]. CONSTITUTIONAL: awake and alert, no obvious distress HEENT: Atraumatic and normocephalic, PERRL, EOMI. Tympanic membranes clear. Oropharynx clear, no exudate and moist pink mucosa. Airway patent. No lymphadenopathy. No meningismus. Cardiovascular: Normal S1/S2, regular rate, regular rhythm, without murmur rub or gallop. PULMONARY/CHEST: Symmetrical and nontender. Clear to auscultation bilaterally. Good air movement. No accessory muscle usage. ABDOMEN: Soft, nondistended, nontender, no rebound, no guarding, no peritoneal signs, no masses or organomegaly. No CVAT. : Approximately 5-6 small reddened pinpoint lesions on her vulva; no drainage ; no discharge. EXTREMITIES: 2/2 pulses, strength 5/5, no deformities, no clubbing, no cyanosis or edema. NEUROLOGICAL: no focal neuro deficits. GCS 15. SKIN: Warm and dry, no erythema. no rash. Good capillary refill. Source: Patient Exam Limitations: No limitations - Personal History LMP (Females 10-55): 1-7 Days Ago Current Tetanus/Diphtheria Vaccine: Yes - Medical/Surgical History Hx Asthma: Yes Hx Chronic Respiratory Disease: No Hx Diabetes: No Hx Cardiac Disease: No Hx Renal Disease: No Hx Cirrhosis: No Hx Alcoholism: No Hx HIV/AIDS: No Hx Splenectomy or Spleen Trauma: No Other PMH: asthma; herpes simplex 2; Cleft lip/palate repair, hx mono, mood disorder - Social History Smoking Status: Never smoked Constitutional: Initial Vital Signs Temperature (C) 36.8 C 01/27/17 17:12 Heart Rate 64 01/27/17 17:12 Respiratory Rate 18 01/27/17 17:12 Blood Pressure 120/54 L 01/27/17 17:12 O2 Sat (%) 99 01/27/17 17:12 O2 Delivery Mode Room Air Allergies/Adverse Reactions: penicillin G Allergy (Verified 01/27/17 17:12) peanuts Allergy (Uncoded 06/22/16 21:42) Home Medications: Medication Instructions Recorded lamoTRIgine [LaMICtal] 100 mg PO HS 06/12/16 Valacyclovir HCl [Valtrex] 1,000 mg PO DAILY #5 tablet 01/27/17 Medical Decision Making ED Course/Re-evaluation: Patient is afebrile and has no constitutional signs. She has a previous diagnosis of genital herpes that is controlled with Valtrex 1 g Will refill her prescription for suppressive therapy of 1 g daily x5 days. Patient is well-versed on precautions and has already told her current sexual partner. Differential Diagnosis: Differential diagnosis includes but is not limited to vestibular papillae, ingrown hairs, STDs. Departure - Departure Disposition: Home, Routine, Self-Care Clinical Impression: Genital herpes Qualifiers: Herpes simplex infection site: vulvovaginitis Qualified Code(s): A60.04 - Herpesviral vulvovaginitis Condition: Good Instructions: Genital Herpes Simplex (ED) Referrals: [facility],. [Clinic] - As per Instructions Prescriptions: Valacyclovir HCl [Valtrex] 1,000 mg PO DAILY #5 tablet
== END 2017-01-27 17:54 | disposition home or self-care (01) ==
DX: A60.04 Herpesviral vulvovaginitis (principal); J45.909 Unspecified asthma, uncomplicated; Z91.010 Allergy to peanuts

== ENCOUNTER 2017-02-22 12:45 | Emergency (ER) | payer OTHER ==
[2017-02-22 13:01] VITALS: BP 104/65; PULSE 64; RESP 16; TEMP 98.4; O2SAT 97
[2017-02-22 13:49] LABS: COLOR YELLOW; LEUKOCYTE ESTERASE,URINE NEGATIVE (NEGATIVE); NITRITE,URINE NEGATIVE (NEGATIVE)
[2017-02-22 13:52] LABS: MUCUS TRACE /lpf (NONE-1+)
--- NOTE | 2017-02-22 14:21 | EDPHY ---
H & P Time Seen by Provider: 02/22/17 14:16 HPI/ROS: CHIEF COMPLAINT: Lower abdominal pain, burning with urination HISTORY OF PRESENT ILLNESS: The patient is a 21 y/o female with a history of herpes simplex II complaining of lower abdominal pain and burning with urination. Onset of dysuria and urinary frequency yesterday, similar to prior urinary tract infections. She describes the pain as stabbing in the middle of her lower abdomen every few minutes. She has associated polyuria and increased urgency to urinate. She had a normal menstrual period that ended yesterday. No flank pain, vomiting or fever. She denies a current herpes outbreak. She denies history of ovarian cyst or pelvic infection. She took Azo with no relief in symptoms. REVIEW OF SYSTEMS: Constitutional: No fever, no chills Eyes: No visual changes ENT: No sore throat Respiratory: No cough, no shortness of breath Cardiac: No chest pain Gastrointestinal: No nausea, no vomiting Genitourinary: No hematuria Musculoskeletal: No leg pain or swelling Skin: No rash Neurological: No headache, no weakness Psychiatric: No depression Past Medical/Surgical History: Herpes simplex II, asthma Social History: Boyfriend at bedside, employed, lives in [place] Smoking Status: Never smoked Physical Exam: General Appearance: Alert, no distress Eyes: Pupils equal and round, no conjunctival pallor or injection ENT, Mouth: Mucous membranes moist Neck: Normal inspection Respiratory: Lungs are clear to auscultation Cardiovascular: Regular rate and rhythm Gastrointestinal: Suprapubic tenderness, abdomen is soft Neurological: A&O, nonfocal, normal gait Skin: Warm and dry, no rash Extremities: Nontender, no pedal edema Psychiatric: Mood and affect normal Constitutional: Initial Vital Signs Temperature (C) 36.9 C 02/22/17 12:59 Heart Rate 64 02/22/17 12:59 Respiratory Rate 16 02/22/17 12:59 Blood Pressure 104/65 02/22/17 12:59 O2 Sat (%) 97 02/22/17 12:59 O2 Delivery Mode Room Air Allergies/Adverse Reactions: penicillin G Allergy (Verified 02/22/17 18:58) peanuts Allergy (Uncoded 06/22/16 21:42) Home Medications: Medication Instructions Recorded lamoTRIgine [LaMICtal] 100 mg PO HS 06/12/16 Valacyclovir HCl [Valtrex] 1,000 mg PO DAILY #5 tablet 01/27/17 Albuterol [Proventil Inhaler HFA 2 puffs IH QID PRN #1 mdi 02/22/17 (*)] Cephalexin [Keflex (*)] 500 mg PO QID #20 cap 02/22/17 Medical Decision Making ED Course/Re-evaluation: The patient is a a 21 y/o female with dysuria and suprapubic pain. A urinalysis reveals hematuria, without pyuria. The hematuria is most likely secondary to her menses. The although her urinalysis does not reveal white blood cells, I will treat her for urinary tract infection, given that she has typical symptoms of a UTI. A urine culture was sent. Keflex given. Differential Diagnosis: The differential diagnosis for the patient's abdominal pain included but was not limited to ovarian cyst, pelvic inflammatory disease, ovarian torsion, urinary tract infection, ectopic , cholecystitis, and appendicitis. - Data Points Laboratory Results: 02/22/17 02/22/17 14:45 13:00 Urine Color YELLOW Urine Appearance CLEAR Urine pH 5.0 (5.0-7.5) Ur Specific [place] 1.026 (1.002-1.030) Urine Protein NEGATIVE (NEGATIVE) Urine Ketones TRACE H (NEGATIVE) Urine Blood 1+ H (NEGATIVE) Urine Nitrate NEGATIVE (NEGATIVE) Urine Bilirubin NEGATIVE (NEGATIVE) Urine Urobilinogen NEGATIVE EU EU (0.2-1.0) Ur Leukocyte Esterase NEGATIVE (NEGATIVE) Urine RBC 5-10 /hpf H /hpf (0-3) Urine WBC 1-3 /hpf /hpf (0-3) Ur Epithelial Cells TRACE /lpf /lpf (NONE-1+) Urine Mucus TRACE /lpf /lpf (NONE-1+) Urine Glucose NEGATIVE (NEGATIVE) C.trachomatis RNA (TMA) Pending N.gonorrhoeae RNA (TMA) Pending Medications Given: Discontinued Medications Cephalexin HCl (Keflex) 500 mg PO EDNOW ONE PRN Reason: Protocol Stop: 02/22/17 14:30 Last Admin: 02/22/17 14:37 Dose: 500 mg Ibuprofen (Motrin) 600 mg PO EDNOW ONE Stop: 02/22/17 14:30 Last Admin: 02/22/17 14:37 Dose: 600 mg Departure - Departure Disposition: Home, Routine, Self-Care Clinical Impression: UTI (urinary tract infection) Qualifiers: Urinary tract infection type: site unspecified Hematuria presence: without hematuria Qualified Code(s): N39.0 - Urinary tract infection, site not specified Condition: Good Instructions: Urinary Tract Infection in Women (ED) Additional Instructions: 1. Begin taking antibiotics as directed. Take the full course unless you are instructed otherwise by ED staff based on your urine culture results. 2. Follow-up with your primary care provider for unimproved symptoms in 2-3 days. . 3. Return to the ED for worsening of condition. Referrals: Terence Pretty MD [Medical Doctor] - 2-3 days, call for appt. Prescriptions: Albuterol [Proventil Inhaler HFA (*)] 2 puffs IH QID PRN #1 mdi PRN Reason: Short Of Breath/Dyspnea Cephalexin [Keflex (*)] 500 mg PO QID #20 cap Report Scribed for: Pippa Booker Report Scribed by: Cynthia Wick Date of Report: 02/22/17 Time of Report: 14:20 Physician Review and Approval Statement: 02/22/17 14:20 Portions of this note were transcribed by a medical and health services manager. I personally performed a history, physical exam, medical decision making, and confirmed accuracy of information the transcribed note.
[2017-02-22] MEDS ORDERED: CEPHALEXIN 500 MG CAP PO ONE (14:29)
[2017-02-22] MEDS ORDERED: IBUPROFEN 600 MG TAB PO ONE (14:29)
[2017-02-23 12:26] LABS: CHLAMYDIA AMPLIFICATION GENPRB NEGATIVE (NEGATIVE)
== END 2017-02-22 14:52 | disposition home or self-care (01) ==
DX: N39.0 Urinary tract infection, site not specified (principal); J45.909 Unspecified asthma, uncomplicated; B96.89 Other specified bacterial agents as the cause of diseases classified elsewhere; Z91.010 Allergy to peanuts

== ENCOUNTER 2017-02-22 18:40 | Emergency (ER) | payer OTHER ==
[2017-02-22 19:01] VITALS: TEMP 98.2
--- NOTE | 2017-02-22 19:23 | EDPHY ---
H & P Stated Complaint: seen in ed /went to [facility] after/ sent back to ed to r/o ovarian cyst Time Seen by Provider: 02/22/17 19:20 HPI/ROS: CHIEF COMPLAINT: In the ER for evaluation possible ovarian cyst HISTORY OF PRESENT ILLNESS: 21-year-old female seen emergency department earlier today for abdominal pain, sent to [facility] subsequently where she had pelvic examination and was noted to have right adnexal tenderness and was recommend she return to the ER for a pelvic ultrasound to evaluate possible ovarian cyst and/or torsion. The patient is currently complaining of continued "vaginal pain". No nausea or vomiting. No back or flank pain. No urinary abnormality. No vaginal bleeding or discharge. REVIEW OF SYSTEMS: A ten point review of systems was performed and is negative with the exception of the items mentioned in the HPI PAST MEDICAL & SURGICAL HISTORY: No pertinent medical or surgical history SOCIAL HISTORY: nonsmoker PHYSICAL EXAM (Prior to examination, patient consented to physical exam, hands were washed and my usual and customary physical exam procedures followed) 1) GENERAL: Well-developed, well-nourished, alert and oriented. Appears nontoxic 2) HEAD: Normocephalic, atraumatic 3) HEENT: Pupils equal, round, reactive to light bilaterally. Sclera anicteric. 4) NECK: Full range of motion, no meningeal signs. 5) LUNGS: Clear auscultation bilaterally, no wheezes, no rhonchi, no retractions. 6) HEART: Regular rate and rhythm, no murmur, no heave, no gallop. 7) ABDOMEN: No guarding, no rebound, no focal tenderness, negative McBurney's, negative Hernandez's, negative Rovsing's, negative peritoneal sign, 8) MUSCULOSKELETAL: Moving all extremities, no focal areas of tenderness, no obvious trauma. No peripheral edema or discoloration. 9) BACK: No CVA tenderness, no midline vertebral tenderness, no fluctuance, no step-off, no obvious trauma, no visual or palpable abnormality. 10) SKIN: No rash, no petechiae. 11) Psychiatric: Patient is oriented X 3, there is no agitation. DIFFERENTIAL DIAGNOSIS: My differential diagnosis includes, but is not limited to, acute appendicitis, acute cholecystitis, bowel obstruction, acute pancreatitis, ovarian torsion, ectopic , gastritis and urinary tract infection. The patient understands that this diagnosis is provisional and can never be 100% accurate. This is a partial list of diagnoses considered. These considerations are based on history, physical exam, past history and reassessment. - Personal History LMP (Females 10-55): 1-7 Days Ago Current Tetanus/Diphtheria Vaccine: Yes - Medical/Surgical History Hx Asthma: Yes Hx Chronic Respiratory Disease: No Hx Diabetes: No Hx Cardiac Disease: No Hx Renal Disease: No Hx Cirrhosis: No Hx Alcoholism: No Hx HIV/AIDS: No Hx Splenectomy or Spleen Trauma: No Other PMH: asthma; herpes simplex 2; Cleft lip/palate repair, hx mono, mood disorder - Social History Smoking Status: Never smoked Constitutional: Initial Vital Signs Temperature (C) 36.8 C 02/22/17 18:58 Heart Rate 62 02/22/17 18:58 Respiratory Rate 18 02/22/17 18:58 Blood Pressure 99/58 L 02/22/17 18:58 O2 Sat (%) 98 02/22/17 18:58 O2 Delivery Mode Room Air Allergies/Adverse Reactions: penicillin G Allergy (Verified 02/22/17 18:58) peanuts Allergy (Uncoded 06/22/16 21:42) Home Medications: Medication Instructions Recorded lamoTRIgine [LaMICtal] 100 mg PO HS 06/12/16 Valacyclovir HCl [Valtrex] 1,000 mg PO DAILY #5 tablet 01/27/17 Albuterol [Proventil Inhaler HFA 2 puffs IH QID PRN #1 mdi 02/22/17 (*)] Cephalexin [Keflex (*)] 500 mg PO QID #20 cap 02/22/17 Medical Decision Making - Diagnostics Imaging Results: Imaging Impressions Pelvic/Renal Ultrasound 02/22/17 19:22 Impression: Normal ultrasound pelvis. Findings and recommendations discussed with Lalita Iglesias at 10:00 PM hour , 02/22/2017. Final report concurs with initial preliminary interpretation. Images reviewed by myself ED Course/Re-evaluation: 7:23 p.m.: Care of patient under supervision of secondary supervising physician Dr Booker with whom I discussed care . 8:43 p.m.: Discussed with the patient her pelvic ultrasound showing no ovarian cyst no torsion. I re-examined her abdomen at this time which remained soft no guarding or rebound. She describes pain in the vaginal introitus and the distal "4 inches" of her vagina. She already had a pelvic examination performed earlier today and this will therefore be deferred at this time. She has already seen [facility] recommend follow up there in the next 1-2 days. Doubt acute appendicitis. - Data Points Medications Given: Discontinued Medications Hydrocodone Bitart/Acetaminophen (Mertens 5/325mg Prepack#6) 1 btl TAKEHOME EDNOW ONE Stop: 02/22/17 20:54 Last Admin: 02/22/17 21:00 Dose: 1 btl Oxycodone/Acetaminophen (Percocet 5/325) 1 tab PO EDNOW ONE Stop: 02/22/17 19:35 Last Admin: 02/22/17 19:38 Dose: 1 tab Departure - Departure Disposition: Home, Routine, Self-Care Clinical Impression: Vaginal pain Condition: Good Instructions: Hydrocodone/Acetaminophen (By mouth), Vaginitis (ED) Additional Instructions: Return to the ER if you develop new or worsening symptoms, if you develop fever chills or any other symptoms that concern you Referrals: [facility] [Outside] - 1-2 days without fail
[2017-02-22] MEDS ORDERED: OXYCODONE/APAP 5/325 TAB PO ONE (19:34)
[2017-02-22] MEDS ORDERED: HYDROCOD/APAP 5/325 PREPACK#6 BTL TAKEHOME ONE (20:53)
[2017-02-22 21:05] VITALS: BP 112/68; PULSE 59; RESP 16; O2SAT 97
== END 2017-02-22 21:05 | disposition home or self-care (01) ==
DX: R10.2 Pelvic and perineal pain (principal); J45.909 Unspecified asthma, uncomplicated; Z91.010 Allergy to peanuts

== ENCOUNTER 2017-06-18 11:42 | Observation (INO) | payer OTHER, MEDICAID ==
--- NOTE | 2017-06-18 11:56 | EDPHY ---
H & P Stated Complaint: Pelvic pain cramping-had elective 06/17 (PP)--no vag bleeding Time Seen by Provider: 06/18/17 11:55 HPI/ROS: HPI: This is a 21-year-old female who presents with Chief Complaint: Pelvic pain cramping-had elective 06/17 (PP)--no vag bleeding Location: pelvic Quality: Pain and cramping Duration: Since yesterday afternoon Signs and Symptoms: no fever, no nausea, no vomiting, no hematemesis, no blood in stool, no abdominal bloating, no diarrhea, no back pain, no urinary symptoms , no vaginal bleeding/discharge, no indigestion, no chest pain, no shortness of breath Timing: Acute, intermittent episodes Severity: 01/03 Context: Patient reports that she [facility] around 2:00 p.m.. Since that time she has had pelvic cramping and pain that has not been relieved by Vicodin. She reports that the pain is severe, constant, cramping, nonradiating in nature. She denies any fever/back pain/urinary symptoms/vaginal discharge/vaginal bleeding. She is eating and drinking normally. Last meal was breakfast at 9:00 a.m. Modifying Factors: Vicodin no relief Comment: ROS: see HPI Constitutional: No fever, no chills, no weight loss Eyes: No blurred vision Respiratory: No shortness of breath, no cough Cardiovascular: No chest pain, no palpitations Gastrointestinal: No nausea, no vomiting, no diarrhea, no hematemesis, no blood in stool Genitourinary: No dysuria, no blood in urine Extremities: No myalgias, no edema Neurologic: No weakness, no numbness Skin: No rashes, no petechiae Hematologic: No bruising, no bleeding MEDICAL/SURGICAL/SOCIAL HISTORY: Medical history: asthma; herpes simplex 2; mood disorder Surgical history: Cleft lip/palate repair Social history: Significant other at bedside, student CONSTITUTIONAL: Nontoxic-appearing young adult white female, awake and alert, no obvious distress HEENT: Atraumatic and normocephalic, PERRL, EOMI. Tympanic membranes clear. Oropharynx clear, no exudate and moist pink mucosa. Airway patent. No lymphadenopathy. No meningismus. Cardiovascular: Normal S1/S2, regular rate, regular rhythm, without murmur rub or gallop. PULMONARY/CHEST: Symmetrical and nontender. Clear to auscultation bilaterally. Good air movement. No accessory muscle usage. ABDOMEN: Soft, nondistended, nontender, no rebound, no guarding, no peritoneal signs, no masses or organomegaly. No CVAT. PELVIC: Deferred per patient EXTREMITIES: 2/2 pulses, strength 5/5, no deformities, no clubbing, no cyanosis or edema. NEUROLOGICAL: no focal neuro deficits. GCS 15. SKIN: Warm and dry, no erythema. no rash. Good capillary refill. Source: Patient Exam Limitations: No limitations - Personal History LMP (Females 10-55): Unknown - Medical/Surgical History Hx Asthma: Yes Hx Chronic Respiratory Disease: No Hx Diabetes: No Hx Cardiac Disease: No Hx Renal Disease: No Hx Cirrhosis: No Hx Alcoholism: No Hx HIV/AIDS: No Hx Splenectomy or Spleen Trauma: No Other PMH: asthma; herpes simplex 2; Cleft lip/palate repair, mood disorder - Social History Smoking Status: Never smoked Constitutional: Initial Vital Signs Temperature (C) 37.0 C 06/18/17 11:50 Heart Rate 71 06/18/17 11:50 Respiratory Rate 16 06/18/17 11:50 Blood Pressure 100/67 06/18/17 11:50 O2 Sat (%) 98 06/18/17 11:50 O2 Delivery Mode Room Air Allergies/Adverse Reactions: penicillin G Allergy (Verified 02/22/17 18:58) peanuts Allergy (Uncoded 06/22/16 21:42) Home Medications: Medication Instructions Recorded lamoTRIgine [LaMICtal] 100 mg PO HS 06/12/16 Valacyclovir HCl [Valtrex] 1,000 mg PO DAILY #5 tablet 01/27/17 Albuterol [Proventil Inhaler HFA 2 puffs IH QID PRN #1 mdi 02/22/17 (*)] [place] 5/325 (*) 06/18/17 Wellbutrin Sr 06/18/17 Medical Decision Making - Diagnostics Imaging Results: Imaging Impressions Pelvic/Renal Ultrasound 06/18/17 12:11 Impression: 1. Retained products of conception likely consists of combination of blood products and small residual remnant of vascularized placenta. 2. Normal ovaries. No adnexal mass or free fluid. Findings discussed with emergency department physician hospital aides and assistants teacher, OTONIEL Dean on June 18, 2017 at 1:10 p.m. ED Course/Re-evaluation: Labs, urinalysis, IV fluids, pelvic ultrasound ordered to evaluate for retained products of conception Vital signs are stable show no systemic signs. Given 1 L normal saline, IV Toradol and IV Valium with near complete relief. Called by ultrasound who said there is residual products in the endometrial cavity continues soft tissue fluid and blood flow, ovaries normal 1330: Pain down to 5/10. IV morphine ordered. Patient reports that she wants to stay here and have the procedure versus [facility] Patient will need a repeat D&C. Labs reviewed; H&H stable. ED decision to consult charcoal kiln burner. Spoke with Dr. Zarate kindly agrees to admit patient and provide further care. This patient was seen under the supervision of my secondary supervising physician. I evaluated care for this patient independently. Discussed this patient with Dr. Garcia who did not see the patient. Differential Diagnosis: Abdominal pain in a female including but not limited to ovarian cyst, pelvic inflammatory disease, ovarian torsion, urinary tract infection, and appendicitis. - Data Points Laboratory Results: Laboratory Results 06/18/17 12:00 06/18/17 12:00 06/18/17 06/18/17 12:00 12:00 WBC 8.97 10^3/uL 10^3/uL (3.80-9.50) RBC 4.40 10^6/uL 10^6/uL (4.18-5.33) Hgb 13.3 g/dL g/dL (12.6-16.3) Hct 37.6 % L % (38.0-47.0) MCV 85.5 fL fL (81.5-99.8) MCH 30.2 pg pg (27.9-34.1) MCHC 35.4 g/dL g/dL (32.4-36.7) RDW 13.2 % % (11.5-15.2) Plt Count 236 10^3/uL 10^3/uL (150-400) MPV 10.1 fL fL (8.7-11.7) Neut % (Auto) 63.8 % % (39.3-74.2) Lymph % (Auto) 23.0 % % (15.0-45.0) [place] % (Auto) 7.6 % % (4.5-13.0) Eos % (Auto) 4.7 % % (0.6-7.6) Baso % (Auto) 0.6 % % (0.3-1.7) Nucleat RBC Rel Count 0.0 % % (0.0-0.2) Absolute Neuts (auto) 5.73 10^3/uL 10^3/uL (1.70-6.50) Absolute Lymphs (auto) 2.06 10^3/uL 10^3/uL (1.00-3.00) Absolute Monos (auto) 0.68 10^3/uL 10^3/uL (0.30-0.80) Absolute Eos (auto) 0.42 10^3/uL H 10^3/uL (0.03-0.40) Absolute Basos (auto) 0.05 10^3/uL 10^3/uL (0.02-0.10) Absolute Nucleated RBC 0.00 10^3/uL 10^3/uL (0-0.01) Immature Gran % 0.3 % % (0.0-1.1) Immature Gran # 0.03 10^3/uL 10^3/uL (0.00-0.10) Sodium 140 mEq/L mEq/L (135-145) Potassium 4.1 mEq/L mEq/L (3.5-5.2) Chloride 109 mEq/L mEq/L (97-110) Carbon Dioxide 22 mEq/l mEq/l (22-31) Anion Gap 9 mEq/L mEq/L (8-16) BUN 12 mg/dL mg/dL (7-23) Creatinine 0.6 mg/dL mg/dL (0.6-1.0) Estimated GFR > 60 Glucose 89 mg/dL mg/dL (70-100) Calcium 8.8 mg/dL mg/dL (8.5-10.4) Medications Given: Discontinued Medications Diazepam (Valium) 5 mg IVP EDNOW ONE Stop: 06/18/17 12:13 Last Admin: 06/18/17 12:18 Dose: 5 mg Sodium Chloride (Ns) 1,000 mls @ 0 mls/hr IV ONCE ONE; Wide Open PRN Reason: Protocol Stop: 06/18/17 12:12 Last Admin: 06/18/17 12:16 Dose: 1,000 mls Sodium Chloride (Ns) 1,000 mls @ 0 mls/hr IV ONCE ONE; Wide Open PRN Reason: Protocol Stop: 06/18/17 12:12 Last Admin: 06/18/17 12:18 Dose: Not Given Ketorolac Tromethamine (Toradol) 30 mg IVP EDNOW ONE Stop: 06/18/17 12:12 Last Admin: 06/18/17 12:18 Dose: 30 mg Departure - Departure Disposition: [facility] Clinical Impression: S/P dilation and curettage, Status post elective , Retained products of conception following Condition: Fair
[2017-06-18] MEDS ORDERED: KETOROLAC 30 MG/1 ML SDV IVP ONE (12:11)
[2017-06-18] MEDS ORDERED: NS 1,000 ML IV ONE ×2 (12:11)
[2017-06-18] MEDS ORDERED: DIAZEPAM 5 MG/ML 1 ML SYR IVP ONE (12:12)
[2017-06-18 12:17] LABS: PLATELET COUNT 236 10^3/uL (150-400)
[2017-06-18] MEDS ORDERED: ONDANSETRON 4 MG/2 ML VIAL ONE ×2 (13:46→19:32)
[2017-06-18] MEDS ORDERED: ONDANSETRON 4 MG/2 ML VIAL IVP ONE (13:48)
[2017-06-18] MEDS ORDERED: DOXYCYCLINE HYCLATE 100 MG CAP/TAB PO ONE ×3 (15:35→20:28)
[2017-06-18] MEDS ORDERED: LR 1,000 ML IV ONE (15:35)
[2017-06-18] MEDS ORDERED: DIAZEPAM 5 MG/ML 1 ML SYR IVP PRN (15:37)
[2017-06-18] MEDS ORDERED: ALBUTEROL 60 PUFFS/8 GM MDI IH PRN (15:38)
[2017-06-18] MEDS: fentaNYL 100 MCG/2 ML INJ IVP PRN ×4 (15:54→21:33)
[2017-06-18] MEDS ORDERED: AMMONIA AROMATIC 1 EACH AMP IH ONE (18:02)
[2017-06-18] MEDS ORDERED: LIDOCAINE 1% 300 MG/30 ML SDV ONE (18:02)
[2017-06-18] MEDS ORDERED: TERBUTALINE SULFATE 1 MG/ML VIAL ONE (18:02)
[2017-06-18] MEDS ORDERED: MISOPROSTOL 200 MCG TAB ONE (18:02)
[2017-06-18] MEDS ORDERED: OLIVE OIL 118 ML BTL ONE (18:02)
[2017-06-18] MEDS ORDERED: OXYTOCIN 10 UNIT/ML VIAL ONE (18:02)
[2017-06-18] MEDS ORDERED: DIAZEPAM 5 MG/ML 1 ML SYR ONE (18:17)
[2017-06-18 18:30] VITALS: PULSE 83
[2017-06-18] MEDS ORDERED: HYDROmorphONE/DILAUDID 1 MG/ML INJ IVP PRN (19:00)
[2017-06-18] MEDS ORDERED: NALOXONE HCL 0.4 MG/ML INJ IVP PRN (19:00)
[2017-06-18] MEDS ORDERED: oxyCODONE IR 5 MG TAB PO PRN (19:00)
[2017-06-18] MEDS ORDERED: DEXAMETHASONE 4 MG/ML VIAL IVP PRN (19:00)
[2017-06-18] MEDS ORDERED: ALBUTEROL 3 ML DEYVIAL IH PRN (19:00)
[2017-06-18] MEDS ORDERED: ONDANSETRON 4 MG/2 ML VIAL IVP PRN (19:00)
[2017-06-18] MEDS ORDERED: MIDAZOLAM 2 MG/2 ML VIAL IVP ONE (19:00)
--- NOTE | 2017-06-18 19:02 | PDANEPAE ---
ANE History of Present Illness D&C ANE Past Medical History - Cardiovascular History Hx Hypertension: No - Pulmonary History Hx Asthma/Reactive Airway Disease: Yes Hx Oxygen in Use at Home: No Hx Sleep Apnea: No Sleep Apnea Screening Result - Last Documented: Negative - Endocrine History Hx Diabetes: No - Chronic Pain History Chronic Pain: No ANE Review of Systems Review of Systems: - Exercise capacity Exercise capacity: >=4 METS ANE Patient History - Allergies Allergies/Adverse Reactions: penicillin G Allergy (Verified 02/22/17 18:58) peanuts Allergy (Uncoded 06/22/16 21:42) - Home Medications Home Medications: Albuterol [Proventil Inhaler HFA (*)] 1 - 2 puffs IH QID PRN 06/18/17 [Last Taken 06/17/17] Cetirizine [ZyrTEC 10 mg (*)] 10 mg PO DAILY PRN 06/18/17 [Last Taken 06/17/17] Hydrocodone/Acetaminophen [[place] 5/325 (*)] 2 each PO Q6 PRN 06/18/17 [Last Taken 06/18/17] Valacyclovir HCl [Valtrex] 1,000 mg PO BID 06/18/17 [Last Taken 06/17/17] buPROPion SR [Wellbutrin 100mg SR (*)] 100 mg PO DAILY 06/18/17 [Last Taken Unknown] lamoTRIgine [Lamotrigine] 100 mg PO HS 06/18/17 [Last Taken 06/17/17] - NPO status NPO Since - Liquids (Date): 06/18/17 NPO Since - Liquids (Time): 11:00 NPO Since - Solids (Date): 06/18/17 NPO Since - Solids (Time): 11:00 - Smoking Hx Smoking Status: Never smoked ANE Labs/Vital Signs - Labs Result Diagrams: 06/18/17 12:00 06/18/17 12:00 - Vital Signs Blood Pressure: 101/44 Heart Rate: 83 Respiratory Rate: 16 O2 Sat (%): 96 Height: 160.02 cm Weight: 47.627 kg ANE Physical Exam - Airway Neck exam: FROM Mallampati Score: Class 2 Mouth exam: normal dental/mouth exam - Pulmonary Pulmonary: clear to auscultation - Cardiovascular Cardiovascular: regular rate and rhythym - ASA Status ASA Status: II ANE Anesthesia Plan Anesthesia Plan: GA w LMA
[2017-06-18] MEDS ORDERED: LIDOCAINE 2% 5 ML SDV ONE (19:08)
[2017-06-18] MEDS ORDERED: PROPOFOL 200 MG/20 ML VIAL ONE (19:08)
[2017-06-18] MEDS ORDERED: MIDAZOLAM 2 MG/2 ML VIAL ONE (19:19)
[2017-06-18] MEDS ORDERED: DEXAMETHASONE 4 MG/ML VIAL ONE (19:32)
[2017-06-18] MEDS ORDERED: fentaNYL 100 MCG/2 ML INJ ONE (19:42)
[2017-06-18] MEDS ORDERED: KETOROLAC 30 MG/1 ML SDV ONE (19:43)
--- NOTE | 2017-06-18 20:01 | GHP ---
[f rep st] PREOP HISTORY AND PHYSICAL DATE OF ADMISSION: 06/18/2017 DATE OF SURGERY: 06/18/2017. SERVICE: Gynecology. PREOPERATIVE NOTE: Patient is a 21-year-old G1 status post elective termination on 06/17, who has ev idence of retained products of conception with pelvic cramping. The patient presented to the emergen cy room due to strong pelvic cramping that has persisted since the procedure. Upon presentation to [facility] ER, she was reporting 10/10 pain. The patient states she was taking [id number] pain pills f rom [facility], however, they were not managing the pain. She received IV morphine as well a s Valium and Zofran in the emergency room, but still reported the intensity was enough that she wante d to address this today rather than re-presenting to [facility] tomorrow. The patient has no t had any bleeding since the procedure by her report. The patient denies any nausea or vomiting and denies any fever. The patient is not having any urinary complaints. She denies any chest pain or sh ortness of breath. The patient has a history of anxiety, but does not feel she is having anything si milar to an anxiety attack. The patient had a normal breakfast this morning at approximately 9 o'bayron ck, however, then had additional food at 11 o'clock. With the patient's stable hemodynamics status, it was decided to wait for 8 hours for decreased risk for aspiration to proceed with a repeat D and C for retained tissue. The patient has been counseled about the repeat D and C to retrieve area suspe cted of being retained tissue noted on ultrasound measuring approximately 1.5 x 0.8 cm in the high en dometrial cavity. The ultrasound does not show any signs of free fluid or concern for perforation. Risk and benefits of the procedure discussed with the patient and the consent form signed. PAST MEDICAL HISTORY: Asthma in good control, mood disorder for which she sees a psychiatrist. Herp es simplex 2. PAST SURGICAL HISTORY: Only distant history of a cleft lip and palate repair. PAST HISTORY: Negative. Patient reports normal menstrual cycles monthly and reports she w as approximately 7 weeks when she presented for a therapeutic at [facility]. ALLERGIES: Penicillin causing nausea. CURRENT MEDICATIONS: Wellbutrin, Lamictal, Valtrex, albuterol inhaler. SOCIAL HISTORY: The patient is here with a supportive partner. She reports she has recently moved h ere from [place] and does not have insurance with her regular job yet, is on her parents' insuranc e. REVIEW OF SYSTEMS: A 10-point review done with pertinent positives and negatives noted above. LABORATORY TESTS: Upon admission show white count of 8.9, hemoglobin and hematocrit 13 and 37.6, mago telets 236,000. Chemistry panel is normal. Urinalysis is negative except for 1+ blood and 1-3 WBCs. Ultrasound report reveals a normal-appearing uterus at 8 x 5 x 6 cm with normal-appearing ovaries meredith aterally. An area of retained POC is noted in the high endometrial cavity, 0.8 x 1.5 cm. PHYSICAL EXAM: GENERAL: Upon admission, the patient is a small-framed, well-developed, white female , in no obvious physical distress at this time. VITAL SIGNS: The patient is afebrile with highest t emperature 37.4, and blood pressures 90s to 100 over 50s to 60s. Heart rate in the 60s to 80s. LUNG S: Clear to auscultation bilaterally. CARDIOVASCULAR: Regular rate and rhythm. ABDOMEN: Soft and nontender. No guarding. PELVIC: Exam is deferred. ASSESSMENT: Pelvic cramping with evidence of retained products of conception after a therapeutic abo rtion. PLAN: We will proceed with a D and C under ultrasound guidance to remove the remaining tissue. Cons ent form signed. We will give an additional dose of antibiotics after the procedure to cover the pat ient for endometritis. /[id number]/MODL
--- NOTE | 2017-06-18 20:28 | POSTANESTH ---
Post Anesthetic Evaluation Cardiovascular Status: Normal, Stable Respiratory Status: Normal, Stable Level of Consciousness/Mental Status: Mildly Sleepy, Arousable Pain Control: Adequate, Prn Tx Ordered Nausea/Vomiting Control: Adequate, Prn Tx Ordered Complications Possibly Related to Anesthesia: None Noted
--- NOTE | 2017-06-18 20:31 | POSTOPPROG ---
Post Op Note Date of Operation: 06/18/17 Surgeon: Yamilet Zarate Anesthesiologist: Julio Cesar Allen MD Anesthesia: LMA Pre-op Diagnosis: RPOCs after TAB, pelvic pain Post-op Diagnosis: same Indication: intense LAP after TAB on 06/17 with u/s showing RPOCs at .8x1.5 cm Procedure: D and C Findings: very slow dilation to 8.5 Fatoumata dilator, 8 tip on suction, sm tissue remove Inf/Abcess present in the surg proc area at time of surgery?: No Depth: Organ Space EBL: Minimal Specimen(s): RPOCs
--- NOTE | 2017-06-18 21:36 | GOP ---
[f rep st] OPERATIVE REPORT DATE OF OPERATION: 06/18/2017 SURGEON: Yamilet Zarate MD ANESTHESIA: Laryngeal mask anesthesia. ANESTHESIOLOGIST: Julio Cesar Allen DO. PREOPERATIVE DIAGNOSIS: Retained products of conception. POSTOPERATIVE DIAGNOSIS: Retained products of conception, status post dilatation and curettage. PROCEDURE PERFORMED: Suction and sharp dilatation and curettage. FINDINGS: INDICATIONS: Patient is a 21-year-old who presented to the emergency room complaining of lower abdom inal pain and uterine cramping since an elective termination of a on 06/17 at [facility]. The patient required morphine and Toradol in the emergency room and still was having breakthr ough pain. Ultrasound revealed a 0.8 x 1.5 cm area consistent with retained POCs. The patient was n ot having bleeding. Risks and benefits were discussed and the consent form signed for repeat D and C . DESCRIPTION OF PROCEDURE: The patient was taken to the operating room, where following satisfactory laryngeal mask anesthesia, the patient was placed in dorsal lithotomy position. The patient had urin ated prior to coming to the operating room. The patient had SCDs on her lower extremities and had re ceived a dose of oral antibiotics prior to surgery. The patient was prepped and draped in usual ster ile manner for vaginal procedures. A sterile speculum was placed within the vagina and a single-toot h tenaculum was placed on the anterior lip of the cervix. Gentle traction was applied and the cervix was very slowly dilated up to a 8.5 Hegar dilator. Ultrasound was used during the procedure to ensu re there was no injury. Internal cervical os was tight, but did slowly dilate up to 8.5. A #8 tip w as used on the suction machine, and several passes were made with a small amount of tissue obtained. Sharp curettage with a small curette was performed and there was only scant tissue obtained. One fi nal pass with the suction was performed and no additional tissue. The tenaculum was removed and ther e was minimal bleeding from the cervix. Estimated blood loss was minimal. There were no complicatio ns. Ultrasound was performed after the procedure and the endometrial stripe appeared thin. The jax ent was cleaned off and taken out of position and then taken to the recovery room in stable condition . The pathology specimen was the retained products of conception. The patient received Toradol afte r the procedure. SERVICE: Gynecology. /[id number]/MODL
[2017-06-18 22:15] VITALS: O2SAT 98
[2017-06-18 22:32] VITALS: BP 94/51
[2017-06-18 23:00] VITALS: RESP 16
[2017-06-18 23:13] VITALS: TEMP 98.2
== END 2017-06-18 22:55 | disposition home or self-care (01) ==
LOC: INTOOBSV 13:48 → FLD 14:23
PROVIDERS: ADMIT Obstetrics & Gynecology; ATTEND Obstetrics & Gynecology
PROC: 10A07ZZ Abortion of Products of Conception, Via Natural or Artificial Opening (ICD-10-PCS; principal; 2017-06-18)
DX: O73.1 Retained portions of placenta and membranes, without hemorrhage (principal); E86.9 Volume depletion, unspecified; J45.909 Unspecified asthma, uncomplicated; F39 Unspecified mood [affective] disorder; Z88.0 Allergy status to penicillin
CPT/HCPCS: 59840; 76856; G0378; 96374; J1100; J1885; J2250; J2270; J2405; J2590; J2704; J3010; J3105; J3360; J7613

== ENCOUNTER 2017-07-30 11:04 | Emergency (ER) | payer MEDICAID ==
[2017-07-30] MEDS ORDERED: IBUPROFEN 200 MG TAB PO ONE ×2 (11:15→11:16)
[2017-07-30] MEDS ORDERED: HYDROCODONE/APAP 5/325 TAB PO ONE (11:37)
--- NOTE | 2017-07-30 11:56 | EDPHY ---
H & P Time Seen by Provider: 07/30/17 11:08 HPI/ROS: CHIEF COMPLAINT: Sore throat HISTORY OF PRESENT ILLNESS: Patient states that she had onset of sore throat last night. Also body aches and fever. Her boyfriend states he measures an oral temperature this morning and it was 102. Afebrile in the emergency department. She denies nausea, vomiting, diarrhea. She has "a little" cough but no significant nasal congestion or shortness of breath. No chest pain. Also some ear pain on the right. She is concerned as she had to be admitted in May of 2016 for tonsillitis. REVIEW OF SYSTEMS: Negative except per HPI. General Appearance: Alert, no distress. Eyes: Pupils equal and round no icterus ENT: No cervical lymphadenopathy, oropharynx slightly erythematous, uvula midline, no edema. No tonsillar hypertrophy or exudate. Respiratory: No respiratory distress Neurological: Awake, alert, no focal deficits. Skin: Warm and dry, no rashes. Musculoskeletal: Neck is supple nontender. Extremities are symmetrical, full range of motion, no edema. Psychiatric: Patient is oriented X 3, there is no agitation. Medical/surgical history: Asthma, depression, mood disorder, herpes Social history: Nonsmoker. Works at [employer]. Smoking Status: Never smoked Constitutional: Initial Vital Signs Temperature (C) 37.6 C 07/30/17 11:07 Heart Rate 81 07/30/17 11:07 Respiratory Rate 16 07/30/17 11:07 Blood Pressure 102/59 L 07/30/17 11:07 O2 Sat (%) 98 07/30/17 11:07 O2 Delivery Mode Room Air Allergies/Adverse Reactions: peanut Allergy (Verified 07/30/17 11:10) PT REPORTS ANAPHYLAXIS penicillin G Allergy (Verified 07/30/17 11:10) PT REPORTS VOMITING AND RASH Home Medications: Medication Instructions Recorded Albuterol [Proventil Inhaler HFA 06/18/17 (*)] Cetirizine [ZyrTEC 10 mg (*)] 06/18/17 Valacyclovir HCl [Valtrex] 06/18/17 buPROPion SR [Wellbutrin 100mg SR 06/18/17 (*)] lamoTRIgine [Lamotrigine] 06/18/17 Medical Decision Making ED Course/Re-evaluation: 11:45 reviewed test results with patient. Also reviewed past medical history regarding admission in 2017. Differential Diagnosis: Differential diagnosis includes but is not limited to strep pharyngitis, influenza, tonsillitis, peritonsillar abscess and/or other unspecified upper respiratory infection. After evaluation no evidence of bacterial infection, sepsis, mediastinitis, tonsillitis. Discussed symptomatic care. Offered steroids which patient declined. Patient understands return precautions, stable for discharge. - Data Points Laboratory Results: 07/30/17 07/30/17 Unknown 11:14 Group A Strep Screen NEGATIVE (NEGATIVE) Group A Strep DNA Pending Medications Given: Discontinued Medications Hydrocodone Bitart/Acetaminophen ([place] 5/325) 1 tab PO EDNOW ONE Stop: 07/30/17 11:38 Last Admin: 07/30/17 11:54 Dose: 1 tab Ibuprofen (Motrin) 600 mg PO EDNOW ONE Stop: 07/30/17 11:17 Last Admin: 07/30/17 11:17 Dose: 600 mg Departure - Departure Clinical Impression: Acute pharyngitis Qualifiers: Pharyngitis/tonsillitis etiology: unspecified etiology Qualified Code(s): J02.9 - Acute pharyngitis, unspecified Condition: Good Instructions: Pharyngitis (ED) Additional Instructions: Salt water gargles, Tylenol and ibuprofen as discussed. Establish a primary care physician when you are able. Return to the emergency department if symptoms worsen or develop other concerning symptoms. Referrals: NONE *PRIMARY CARE P,. [Primary Care Provider] - As per Instructions Bib Perez, [Medical Doctor] - As per Instructions
[2017-07-30 12:18] VITALS: BP 98/63
== END 2017-07-30 12:13 | disposition home or self-care (01) ==
LOC: CED 11:04
DX: J02.9 Acute pharyngitis, unspecified (principal); J45.909 Unspecified asthma, uncomplicated; Z91.010 Allergy to peanuts
CPT/HCPCS: 87880-PO

== ENCOUNTER → 2018-09-12 | Outpatient (CLI) | payer MEDICAID | LOC: BRMIMAGING 08:39 ==